=== PATIENT | female | born 1960 | race Caucasian/White ===

== ENCOUNTER 2021-03-30 08:00 | Inpatient (IN) | payer OTHER, BC ==
[2021-03-28 12:50] VITALS: BMI 22.3
[2021-03-30] MEDS ORDERED: BUPIVACAINE HCL/PF 0.5% (5 MG/ML) 30 ML VIAL IJ ONE (14:18)
[2021-03-30] MEDS ORDERED: MIDAZOLAM HCL 2 MG/2 ML SINGLE DOSE VIAL ONE ×2 (14:18→14:45)
[2021-03-30] MEDS ORDERED: BUPIVACAINE HCL 50 ML ONE (14:44)
[2021-03-30] MEDS ORDERED: PROPOFOL 20 ML ONE ×4 (14:45→18:00)
[2021-03-30] MEDS ORDERED: VANCOMYCIN 1,000 MG VIAL (RESTRICTED TO ID ONLY) ONE (15:00)
[2021-03-30] MEDS ORDERED: ceFAZolin SODIUM 1 GM VIAL ONE ×2 (15:00→21:30)
[2021-03-30] MEDS ORDERED: TRANEXAMIC ACID 1000 MG/10 ML VIAL ONE (15:13)
[2021-03-30] MEDS ORDERED: BENZOIN 118 ML SPRAY.PUMP TP ONE (18:16)
[2021-03-30] MEDS ORDERED: MAG HYDROX/AL HYDROX/SIMETH 30 ML UNIT-DOSE CUP PO PRN (18:49)
[2021-03-30] MEDS ORDERED: ONDANSETRON 4 MG/2 ML VIAL IVPUSH PRN (18:49)
[2021-03-30] MEDS ORDERED: MAGNESIUM HYDROX 2400MG/30ML ORAL SUSPENSION 30 ML CUP PO PRN (18:49)
[2021-03-30] MEDS ORDERED: ACETAMINOPHEN INJECTION 100 ML IVPB ONE (18:51)
[2021-03-30] MEDS ORDERED: ELETRIPTAN HBR 20 MG PO PRN (18:52)
[2021-03-30] MEDS ORDERED: PROMETHAZINE HCL 25 MG/1 ML VIAL IVPUSH PRN (18:52)
[2021-03-30] MEDS ORDERED: oxyCODONE HCL 5 MG TABLET PO PRN (18:54)
[2021-03-30] MEDS ORDERED: ACETAMINOPHEN 1000 MG/100 ML VIAL IVPB ONE (18:55)
[2021-03-30] MEDS ORDERED: LACTATED RINGERS SOLUTION 1,000 ML IV SCH (19:00)
[2021-03-30] MEDS ORDERED: KETOROLAC TROMETHAMINE 30 MG/1 ML VIAL IVPUSH ONE (20:00)
[2021-03-30] MEDS ORDERED: DEXTROSE 5%-WATER - 50 ML IVPB ONE (21:30)
[2021-03-30] MEDS: SENNOSIDES/DOCUSATE COMBO (SENNA PLUS) TABLET (UD) PO SCH (21:36)
[2021-03-30] MEDS: ASPIRIN COATED 81 MG TABLET.EC PO SCH (21:37)
[2021-03-30] MEDS: CEFAZOLIN 2 GM in DEXTROSE 5%-WATER - 50 ML IVPB SCH (21:37)
[2021-03-30] MEDS: levETIRAcetam XR 750 MG TAB PO SCH (21:45)
[2021-03-31] MEDS: oxyCODONE HCL 5 MG TABLET PO PRN ×3 (00:35→22:21)
[2021-03-31] MEDS ORDERED: ceFAZolin SODIUM 1 GM VIAL ONE ×3 (02:00→14:33)
[2021-03-31] MEDS ORDERED: DEXTROSE 5%-WATER - 50 ML IVPB ONE ×3 (02:00→14:34)
[2021-03-31] MEDS: CEFAZOLIN 2 GM in DEXTROSE 5%-WATER - 50 ML IVPB SCH ×3 (02:03→14:37)
[2021-03-31] MEDS: LEVOTHYROXINE NA 50 MCG TABLET (FP) PO SCH (06:07)
[2021-03-31 08:20] LABS: CALCIUM 8.3 mg/dl (8.5-10); CREATININE 0.7 mg/dl (0.55-1.3); HEMATOCRIT 27.6 % (32.4-45.2); HEMOGLOBIN 9.5 GM/dl (10.7-15.3); MCH 31.8 pg (25.7-33.7); MCHC 34.5 g/dl (32.0-36.0); MEAN CELL VOLUME 92.2 fl (80-96); MEAN PLT VOLUME 8.3 fl (7.5-11.1); PLATELET COUNT 224 10^3/uL (134-434); RDW 12.2 % (11.6-15.6); WHITE BLOOD COUNT 15.2 K/mm3 (4.0-10.8)
[2021-03-31] MEDS: ASPIRIN COATED 81 MG TABLET.EC PO SCH ×2 (08:59→21:36)
[2021-03-31] MEDS: PANTOPRAZOLE 40 MG TABLET PO SCH (09:00)
[2021-03-31] MEDS: SENNOSIDES/DOCUSATE COMBO (SENNA PLUS) TABLET (UD) PO SCH ×2 (09:01→21:36)
[2021-03-31] MEDS: CHOLECALCIFEROL (VIT D3) 1,000 UNIT (25 MCG) TABLET PO SCH (09:03)
[2021-03-31] MEDS ORDERED: traMADol HCL 50 MG TABLET PO PRN (09:57)
[2021-03-31] MEDS ORDERED: CALCIUM CARB PO SCH (10:00)
[2021-03-31] MEDS ORDERED: ZINC SULF PO SCH (10:00)
[2021-03-31] MEDS ORDERED: CELECOXIB 200 MG CAPSULE PO SCH (10:00)
[2021-03-31] MEDS ORDERED: ACTIVATED CHARCOAL 260 MG CAPSULE PO SCH (10:00)
[2021-03-31] MEDS ORDERED: MAG OX PO SCH (10:00)
[2021-03-31] MEDS ORDERED: [UNRECOGNIZED DRUG - OTHER] PO SCH (10:00)
[2021-03-31] MEDS ORDERED: DEXAMETHASONE SOD PHOSPHATE 4 MG/1 ML VIAL IVPUSH PRN (10:01)
[2021-03-31] MEDS: IBUPROFEN 600 MG TABLET (FP) PO PRN ×2 (14:39→21:35)
[2021-03-31] MEDS: levETIRAcetam XR 750 MG TAB PO SCH (21:35)
[2021-03-31] MEDS: ONDANSETRON *ODT* 4 MG TABLET SL PRN (22:21)
[2021-04-01] MEDS: oxyCODONE HCL 5 MG TABLET PO PRN ×2 (05:26→16:11)
[2021-04-01] MEDS: ONDANSETRON *ODT* 4 MG TABLET SL PRN ×2 (05:26→16:12)
[2021-04-01] MEDS: LEVOTHYROXINE NA 50 MCG TABLET (FP) PO SCH (06:08)
[2021-04-01 08:17] LABS: HEMATOCRIT 28.4 % (32.4-45.2); HEMOGLOBIN 9.4 GM/dl (10.7-15.3); MCHC 33.1 g/dl (32.0-36.0); MEAN CELL VOLUME 93.6 fl (80-96); MEAN PLT VOLUME 8.7 fl (7.5-11.1); PLATELET COUNT 170 10^3/uL (134-434); RBC 3.03 M/mm3 (3.60-5.2); RDW 13.1 % (11.6-15.6); WHITE BLOOD COUNT 12.6 K/mm3 (4.0-10.8)
[2021-04-01] MEDS: SENNOSIDES/DOCUSATE COMBO (SENNA PLUS) TABLET (UD) PO SCH (09:13)
[2021-04-01] MEDS: PANTOPRAZOLE 40 MG TABLET PO SCH (09:13)
[2021-04-01] MEDS: IBUPROFEN 600 MG TABLET (FP) PO PRN (09:13)
[2021-04-01] MEDS: ASPIRIN COATED 81 MG TABLET.EC PO SCH (09:13)
[2021-04-01] MEDS: CHOLECALCIFEROL (VIT D3) 1,000 UNIT (25 MCG) TABLET PO SCH (09:13)
[2021-04-01 14:34] VITALS: BP 107/63; PULSE 85; TEMP 98.9
== END 2021-04-01 17:15 | disposition home health service (06) | DRG 470 ==
LOC: EDSTATUS 08:00 → FM/S 10:40 → UNDOADMIN 10:40 → FM/S 14:34
PROVIDERS: ADMIT Orthopaedic Surgery Adult Reconstructive Orthopaedic Surgery; ATTEND Orthopaedic Surgery Adult Reconstructive Orthopaedic Surgery
PROC: 0SRB03A Replacement of Left Hip Joint with Ceramic Synthetic Substitute, Uncemented, Open Approach (ICD-10-PCS; principal; 2021-03-30 15:42)
DX: M16.32 Unilateral osteoarthritis resulting from hip dysplasia, left hip (principal); E03.9 Hypothyroidism, unspecified; G40.909 Epilepsy, unspecified, not intractable, without status epilepticus; K21.9 Gastro-esophageal reflux disease without esophagitis; F31.9 Bipolar disorder, unspecified; F98.8 Other specified behavioral and emotional disorders with onset usually occurring in childhood and adolescence; M79.7 Fibromyalgia
CPT/HCPCS: 36415; 73502-TC-LT-FY; 80048; 85027; 88305-TC; 88311-TC; 94010; 94760; 97116-GP; 97163-GP; C9803; J0131; Q0162; U0003; U0005